=== PATIENT | female | born 1995 | race Asian ===

== ENCOUNTER 2022-11-30 13:30 | Emergency (ER) | payer BC ==
[2022-11-30 13:43] VITALS: BP 127/78
--- NOTE | 2022-11-30 14:23 | ED Physician Documentation ---
History of Present Illness - Stated complaint Stated Complaint: L EYE LAC - Chief complaint Chief Complaint: Laceration - History obtained from History obtained from: Patient - History of Present Illness Timing: Today Pain level max: 4 Pain level now: 1 - Additonal information Additional information: Patient is a 27-year-old female who presents to the emergency department with a left eyelid laceration. Patient states that she walked into a mail[place] post. This occurred just prior to arrival Tetanus shot up-to-date. Denies any possibility of . No active bleeding. No vision changes. No loss of consciousness. No vomiting. No seizure activity. No neck or back pain. No numbness or tingling. Does not take any blood thinners. Review of Systems Constitutional: denies: Fever, Chills GI: denies: Vomiting, Diarrhea Musculoskeletal: denies: Neck pain, Back pain Neurologic: denies: Focal weakness, Numbness, Seizure, Confused, LOC PD PAST MEDICAL HISTORY - Past Medical History Past Medical History: No - Past Surgical History Past Surgical History: No - Allergies Allergies/Adverse Reactions: Allergies Allergy/AdvReac Type Severity Reaction Status Date / Time No Known Drug Allergies Allergy Verified 11/30/22 13:43 - Living Situation Living Situation: reports: With family Living Arrangement: reports: At home - Social History Does the pt smoke?: No Does the pt have substance abuse?: No - Family History Family history: reports: Non contributory - Immunizations Immunizations are current?: Yes Immunizations: TDAP current <10years PD ED PE NORMAL - Vitals Vital signs reviewed: Yes - General General: Alert and oriented X 3, No acute distress, Well developed/nourished - HEENT HEENT: PERRL, EOMI, Moist mucous membranes, Dentition benign, Other (Mild swelling to the left upper lip. No dental injury. No chipped teeth. No loose teeth. She has a 1.5 cm linear laceration to the left upper eyelid, just underneath the eyebrow. Does not involve any lid margins. There is bruising in the eyelid as well. No facial bony tenderness. 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, No motor deficit, No sensory deficit, Normal speech Eye Opening: Spontaneous Motor: Obeys Commands Verbal: Oriented GCS Score: 15 Results - Vitals Vitals: Vital Signs - 24 hr 11/30/22 13:39 Temperature 36.8 C Heart Rate 83 Respiratory 15 Rate Blood Pressure 127/78 O2 Saturation 100 Oxygen O2 Source Room air Procedures - Laceration (location) L upper eyelid Length in cm: 1.5 Wound type: Linear, Into subcut fat, Clean Neurovascular status: Sensory intact, Motor intact, Vascular intact Anesthesia: Lidocaine 1% Wound preparation: Irrigated copiously NS, Wound explored, To the base Skin layer closure: Nylon, Interrupted, Size #-0 - enter number (6) Other: Patient tolerated well, No complications, Neurovascular intact, Dressing applied, Tetanus UTD PD Medical Decision Making - ED course Complexity details: considered differential, d/w patient, d/w family ED course: The eyebrow laceration was repaired. Tolerated well. Not through and through. Fairly superficial laceration. No evidence of ocular injury. No vision changes. No evidence of facial bone fracture. No indication of intracranial hemorrhage or skull fracture that would require intervention. Head injury instructions given at bedside. No indication for head CT at this time. GCS 15. Warnings of infection and instructions on wound care given at bedside. Also counseled on how to minimize scarring. Patient counseled regarding signs and symptoms for which I believe and urgent re-evaluation would be necessary. Patient with good understanding of and agreement to plan and is comfortable going home at this time This document was made in part using voice recognition software. While efforts are made to proofread this document, sound alike and grammatical errors may occur. Departure - Departure Disposition: 01 Home, Self Care Clinical Impression: Eyelid laceration, left Qualifiers: Encounter type: initial encounter Qualified Code(s): S01.112A - Laceration without foreign body of left eyelid and periocular area, initial encounter Condition: Good Instructions: ED Laceration Facial Sutr Tape Follow-Up: Your,doctor in 5-6 days [Other] Comments: Keep the wound clean. Please return here or follow-up with your doctor in approximately 5 to 6 days for suture removal. Return if you notice redness, swelling or drainage from the wound. Please return for severe headaches, vomiting or any other new or worrisome symptoms. Discharge Date/Time: 11/30/22 15:05
[2022-11-30] MEDS ORDERED: BACITRACIN ZINC OINT 1 PACKET TOP STA (14:52)
== END 2022-11-30 15:05 | disposition home or self-care (01) ==
LOC: ED 13:30
DX: S01.112A Laceration without foreign body of left eyelid and periocular area, initial encounter (principal); W22.09XA Striking against other stationary object, initial encounter; Y93.01 Activity, walking, marching and hiking
CPT/HCPCS: 12011; 99282; A9270